=== PATIENT | female | born 1935 | race American Indian/Alaskan Native ===

== ENCOUNTER 2018-10-09 13:45 | Emergency (ER) | payer MEDICARE ==
[2018-10-09] MEDS ORDERED: ZOFRAN IV ONE (15:08)
[2018-10-09] MEDS ORDERED: NACL 0.9% 1000 ML 1,000 ML IV ONE (15:08)
[2018-10-09] MEDS ORDERED: SUBLIMAZE IV ONE (15:08)
--- NOTE | 2018-10-09 15:10 | Emergency Department Report ---
ED N/V/D HPI - General Chief complaint: Nausea/Vomiting/Diarrhea Stated complaint: VOMITING/DEHYDRATED Time Seen by Provider: 10/09/18 14:52 Source: family Mode of arrival: Wheelchair Limitations: Other - History of Present Illness MD complaint: nausea, vomiting -: This morning Description of Vomiting: watery Associated Abdominal Pain: Yes Location: epigastric Radiation: none Severity: mild Pain Scale: 2 Quality: cramping, aching Consistency: constant Improves with: none Worsens with: none Associated Symptoms: nausea/vomiting - Related Data Previous Rx's Medication Instructions Recorded Last Taken Type Ondansetron [Zofran Odt] 4 mg PO Q8HR PRN #20 tab.rapdis 10/09/18 Unknown Rx Allergies Allergy/AdvReac Type Severity Reaction Status Date / Time No Known Allergies Allergy Verified 10/09/18 14:01 ED Review of Systems ROS: Stated complaint: VOMITING/DEHYDRATED Other details as noted in HPI Comment: All other systems reviewed and negative Constitutional: denies: chills, fever Eyes: denies: eye pain, eye discharge, vision change ENT: denies: ear pain, throat pain Respiratory: denies: cough, shortness of breath, wheezing Cardiovascular: denies: chest pain, palpitations Endocrine: no symptoms reported Gastrointestinal: abdominal pain, nausea, vomiting. denies: diarrhea Genitourinary: denies: urgency, dysuria, discharge Musculoskeletal: denies: back pain, joint swelling, arthralgia Skin: denies: rash, lesions Neurological: denies: headache, weakness, paresthesias Psychiatric: denies: anxiety, depression Hematological/Lymphatic: denies: easy bleeding, easy bruising ED Past Medical Hx - Past Medical History Hx Hypertension: Yes Hx Dementia: Yes Additional medical history: HIGH CHOLESTROL/ THYROID PROBELMS - Social History Smoking Status: Never Smoker Substance Use Type: None - Medications Home Medications: Home Medications Medication Instructions Recorded Confirmed Last Taken Type Ondansetron [Zofran Odt] 4 mg PO Q8HR PRN #20 tab.rapdis 10/09/18 Unknown Rx ED Physical Exam - General Limitations: Other General appearance: alert, in no apparent distress - Head Head exam: Present: atraumatic, normocephalic, normal inspection - Eye Eye exam: Present: normal appearance, PERRL, EOMI Pupils: Present: normal accommodation - ENT ENT exam: Present: normal exam, normal orophraynx, mucous membranes moist - Neck Neck exam: Present: normal inspection, tenderness, full ROM - Respiratory Respiratory exam: Present: normal lung sounds bilaterally. Absent: respiratory distress, wheezes, rales, rhonchi, stridor - Cardiovascular Cardiovascular Exam: Present: regular rate, normal rhythm, normal heart sounds. Absent: systolic murmur, diastolic murmur, rubs, gallop - GI/Abdominal GI/Abdominal exam: Present: soft, tenderness (Mild epigastric tenderness to palaption.), normal bowel sounds. Absent: distended, guarding, rebound, rigid - Rectal Rectal exam: Present: deferred - Extremities Exam Extremities exam: Present: normal inspection, full ROM, normal capillary refill - Back Exam Back exam: Present: normal inspection, full ROM. Absent: tenderness, CVA tenderness (L) - Neurological Exam Neurological exam: Present: alert, oriented X3, CN II-XII intact - Psychiatric Psychiatric exam: Present: normal affect, normal mood - Skin Skin exam: Present: warm, dry, intact, normal color. Absent: rash ED Course Vital Signs 10/09/18 10/09/18 10/09/18 14:02 14:58 15:35 Temperature 98.3 F Pulse Rate 80 Respiratory 18 18 18 Rate Blood Pressure 148/93 O2 Sat by Pulse 95 97 Oximetry - Reevaluation(s) Reevaluation #1: 10/09/18 18:43 Patient has not vomited since she has been in the ED. She feels much better now and ready to go home. ED Medical Decision Making - Lab Data Result diagrams: 10/09/18 15:24 10/09/18 15:24 Lab Results 10/09/18 10/09/18 Range/Units 15:24 15:24 WBC 5.0 (4.5-11.0) K/mm3 RBC 3.10 L (3.65-5.03) M/mm3 Hgb 10.1 (10.1-14.3) gm/dl Hct 30.3 (30.3-42.9) % MCV 98 H (79-97) fl MCH 33 H (28-32) pg MCHC 33 (30-34) % RDW 14.2 (13.2-15.2) % Plt Count 247 (140-440) K/mm3 Lymph % (Auto) 14.8 (13.4-35.0) % [place] % (Auto) 6.2 (0.0-7.3) % Eos % (Auto) 0.1 (0.0-4.3) % Baso % (Auto) 0.4 (0.0-1.8) % Lymph # 0.7 L (1.2-5.4) K/mm3 [place] # 0.3 (0.0-0.8) K/mm3 Eos # 0.0 (0.0-0.4) K/mm3 Baso # 0.0 (0.0-0.1) K/mm3 Seg Neutrophils % 78.5 H (40.0-70.0) % Seg Neutrophils # 3.9 (1.8-7.7) K/mm3 Sodium 143 (137-145) mmol/L Potassium 3.6 (3.6-5.0) mmol/L Chloride 103.7 (98-107) mmol/L Carbon Dioxide 27 (22-30) mmol/L Anion Gap 16 mmol/L BUN 14 (7-17) mg/dL Creatinine 1.1 (0.7-1.2) mg/dL Estimated GFR 58 ml/min BUN/Creatinine Ratio 13 % Glucose 104 H (65-100) mg/dL Calcium 10.1 (8.4-10.2) mg/dL Total Bilirubin 0.30 (0.1-1.2) mg/dL AST 17 (5-40) units/L ALT 16 (7-56) units/L Alkaline Phosphatase 82 (35-129) units/L Troponin T < 0.010 (0.00-0.029) ng/mL Total Protein 7.7 (6.3-8.2) g/dL Albumin 4.0 (3.9-5) g/dL Albumin/Globulin Ratio 1.1 % Lipase 28 (13-60) units/L - Radiology Data Radiology results: report reviewed, image reviewed CT abdomen and pelvis with IV contrast showed no acute intra abdominal findings. - Medical Decision Making Nausea and Vomiting. Critical care attestation.: If time is entered above; I have spent that time in minutes in the direct care of this critically ill patient, excluding procedure time. ED Disposition Clinical Impression: Dehydration Abdominal pain Qualifiers: Abdominal location: epigastric Qualified Code(s): R10.13 - Epigastric pain Nausea & vomiting Qualifiers: Vomiting type: unspecified Vomiting Intractability: non-intractable Qualified Code(s): R11.2 - Nausea with vomiting, unspecified Disposition: DC-01 TO HOME OR SELFCARE Is pt being admited?: No Does the pt Need Aspirin: No Condition: Stable Instructions: Abdominal Pain (ED), Acute Nausea and Vomiting (ED) Additional Instructions: Please follow up with your regular doctor or Dr Torres on Thursday. Return to the ED if your condition worsens. Prescriptions: Ondansetron [Zofran Odt] 4 mg PO Q8HR PRN #20 tab.rapdis PRN Reason: Nausea And Vomiting Referrals: KEYLA IZQUIERDO MD [Primary Care Provider] - 3-5 Days Time of Disposition: 18:46
[2018-10-09 15:56] LABS: Basophils % (Auto) 0.4 % (0.0-1.8); Eosinophils % (Auto) 0.1 % (0.0-4.3); Hematocrit 30.3 % (30.3-42.9); Hemoglobin 10.1 gm/dl (10.1-14.3); Lymphocytes # (Auto) 0.7 K/mm3 (1.2-5.4); Lymphocytes % (Auto) 14.8 % (13.4-35.0); Mean Corpuscular HGB Conc 33 % (30-34); Mean Corpuscular Volume 98 fl (79-97); Monocytes # (Auto) 0.3 K/mm3 (0.0-0.8); Monocytes % (Auto) 6.2 % (0.0-7.3); Platelet Count 247 K/mm3 (140-440); Red Cell Distribution Width 14.2 % (13.2-15.2)
[2018-10-09 16:02] LABS: Alanine Aminotransferase 16 units/L (7-56); BUN/Creatinine Ratio 13; Blood Urea Nitrogen 14 mg/dL (7-17); Calcium 10.1 mg/dL (8.4-10.2); Hemolysis Index 1
[2018-10-09 18:07] LABS: Bilirubin,Urine NEG (Negative); Blood,Urine NEG (Negative); Color,Urine Yellow (Yellow); Protein,Urine <15 mg/dL mg/dL (Negative); Urobilinogen,Urine < 2.0 mg/dL (<2.0)
--- NOTE | 2018-10-09 18:10 | Cat Scan Report ---
FINAL REPORT PROCEDURE: CT abdomen and pelvis with contrast. TECHNIQUE: Computerized axial tomography of the abdomen and pelvis was performed after the IV inject ion of iodinated nonionic contrast. HISTORY: Abdominal pain. COMPARISON: No prior studies are available for comparison. FINDINGS: The lung bases are grossly clear. There are no pleural effusions. The heart size is mildly enlarged. There are probably a few tiny hepatic cysts. The gallbladder is present. There is no biliary dilatati on. The pancreas and spleen appear normal. The adrenal glands are not enlarged. There are bilateral r enal cysts. The abdominal aorta is tortuous with a normal caliber. There is atherosclerotic calcifica tion in the abdominal aorta and iliac arteries. There is no retroperitoneal adenopathy. The unopacifi ed gastrointestinal tract is unremarkable. The appendix is not definitely visualized. The bladder is unremarkable. The uterus is enlarged and contains some calcifications. This suggests fibroid disease. The regional skeleton appears intact. There is a moderate lumbar scoliosis. There is a small umbilic al hernia containing fat. IMPRESSION: Mild cardiomegaly. Tiny a patent cysts. Bilateral renal cysts. Atherosclerosis. Probable uterine leio myomas. No evidence of acute disease in the abdomen or pelvis.
[2018-10-09 19:48] VITALS: BP 152/97
== END 2018-10-09 20:23 | disposition home or self-care (01) ==
LOC: ED 13:45
DX: E86.0 Dehydration (principal)
CPT/HCPCS: 36415; 74177; 80053; 81001; 83690; 84484; 85025; 96361; 96374; 96375; 99285; J2405; J3010; J7030; Q9967

== ENCOUNTER 2018-11-29 09:33 | Emergency (ER) | payer MEDICARE ==
[2018-11-29] MEDS ORDERED: NACL 0.9% 1000 ML 1,000 ML IV ONE (10:04)
[2018-11-29 11:01] LABS: Albumin 3.6 g/dL (3.9-5); Calcium 11.1 mg/dL (8.4-10.2)
[2018-11-29 11:03] LABS: Basophils % (Auto) 0.4 % (0.0-1.8); Eosinophils # (Auto) 0.1 K/mm3 (0.0-0.4); Eosinophils % (Auto) 1.3 % (0.0-4.3); Hematocrit 31.3 % (30.3-42.9); Hemoglobin 10.3 gm/dl (10.1-14.3); Lymphocytes # (Auto) 1.1 K/mm3 (1.2-5.4); Lymphocytes % (Auto) 18.9 % (13.4-35.0); Mean Corpuscular HGB Conc 33 % (30-34); Mean Corpuscular Volume 97 fl (79-97); Monocytes # (Auto) 0.6 K/mm3 (0.0-0.8); Monocytes % (Auto) 11.1 % (0.0-7.3); Platelet Count 295 K/mm3 (140-440); Red Blood Count 3.24 M/mm3 (3.65-5.03)
[2018-11-29 13:28] LABS: INR 1.02 (0.87-1.13)
[2018-11-29 13:29] LABS: Partial Thromboplastin Time 26.8 Sec. (24.2-36.6)
--- NOTE | 2018-11-29 14:32 | Cat Scan Report ---
CT ABDOMEN PELVIS WITHOUT CONTRAST: HISTORY: Abdominal pain, constipation. COMPARISON: 10/09/18. TECHNIQUE: Helical CT in 1.25mm intervals without IV contrast. Sagittal and coronal reconstructions. FINDINGS: Lung bases: Normal. Liver: Normal. Biliary system: Normal. Pancreas: Normal. Spleen: Normal. Kidneys/ureters/bladder: 2 or 3 calyceal stones are identified in both kidneys measuring up to 5 mm. No hydronephrosis or ureteral stones. A 3 cm cyst is identified at the superior pole of the left kidney. A 2 cm cyst is noted in the mid right kidney. The bladder is unremarkable. Adrenal glands: Normal. Aorta: The aorta is ectatic with diffuse calcifications. No aneurysm. Intestines: There is moderate to large stool throughout the length of the colon and rectum consistent with moderate constipation. There is no evidence for obstruction or focal inflammation. A few scattered diverticula are noted in the cecum and descending colon. Appendix: Normal. Pelvic viscera: The uterus is mildly enlarged and contains multiple small to medium fibroids ranging from 1-4 cm in diameter. No adnexal cyst or mass. Ascites: None. Adenopathy: None. Musculoskeletal: Moderate to severe thoracolumbar spondylosis. No fracture or suspicious bony lesion. IMPRESSION: No acute inflammatory process is identified in the abdomen or pelvis. Moderate constipation. Bilateral renal calyceal stones. No hydronephrosis or ureteral stones. Simple renal cysts. Ectatic aorta with calcifications. Uterine fibroid disease.
--- NOTE | 2018-11-29 16:11 | Emergency Department Report ---
ED General Adult HPI - General Chief complaint: Abdominal Pain Stated complaint: DEMENTIA/CONSTIPATED/DEHYDRATED Time Seen by Provider: 11/29/18 12:39 Source: family Mode of arrival: Wheelchair Limitations: Altered Mental Status - History of Present Illness Initial comments: The patient presents to the emergency department with a chief complaint of abdo elio pain and constipation times one day. The patient does have dementia so at times is difficulty due to history but she does eventually answer questions. Patient denies chest pain, shortness breath, or headache. -: Gradual Location: abdomen Severity scale (0 -10): 5 Quality: aching Consistency: constant Improves with: none Worsens with: none Associated Symptoms: denies other symptoms Treatments Prior to Arrival: none - Related Data Previous Rx's Medication Instructions Recorded Last Taken Type Ondansetron [Zofran Odt] 4 mg PO Q8HR PRN #20 tab.rapdis 10/09/18 Unknown Rx Magnesium Citrate [Citrate of 300 ml PO ONCE #1 solution 11/29/18 Unknown Rx Magnesia] Allergies Allergy/AdvReac Type Severity Reaction Status Date / Time No Known Allergies Allergy Verified 10/09/18 14:01 ED Review of Systems ROS: Stated complaint: DEMENTIA/CONSTIPATED/DEHYDRATED Other details as noted in HPI Comment: All other systems reviewed and negative Constitutional: denies: chills, fever Eyes: denies: eye pain, eye discharge, vision change ENT: denies: ear pain, throat pain Respiratory: denies: cough, shortness of breath, wheezing Cardiovascular: denies: chest pain, palpitations Endocrine: no symptoms reported Gastrointestinal: abdominal pain. denies: nausea, diarrhea Genitourinary: denies: urgency, dysuria, discharge Musculoskeletal: denies: back pain, joint swelling, arthralgia Skin: denies: rash, lesions Neurological: denies: headache, weakness, paresthesias Psychiatric: denies: anxiety, depression Hematological/Lymphatic: denies: easy bleeding, easy bruising ED Past Medical Hx - Past Medical History Hx Hypertension: Yes Hx Dementia: Yes Additional medical history: HIGH CHOLESTROL/ THYROID PROBELMS - Social History Smoking Status: Never Smoker Substance Use Type: None - Medications Home Medications: Home Medications Medication Instructions Recorded Confirmed Last Taken Type Ondansetron [Zofran Odt] 4 mg PO Q8HR PRN #20 tab.rapdis 10/09/18 Unknown Rx Magnesium Citrate [Citrate of 300 ml PO ONCE #1 solution 11/29/18 Unknown Rx Magnesia] ED Physical Exam - General Limitations: Altered Mental Status General appearance: alert, in no apparent distress - Head Head exam: Present: atraumatic, normocephalic - Eye Eye exam: Present: normal appearance, PERRL, EOMI - ENT ENT exam: Present: mucous membranes moist - Neck Neck exam: Present: normal inspection - Respiratory Respiratory exam: Present: normal lung sounds bilaterally. Absent: respiratory distress, wheezes, rales, rhonchi - Cardiovascular Cardiovascular Exam: Present: regular rate, normal rhythm. Absent: systolic murmur, diastolic murmur, rubs, gallop - GI/Abdominal GI/Abdominal exam: Present: soft, normal bowel sounds. Absent: distended, tenderness - Extremities Exam Extremities exam: Present: normal inspection - Back Exam Back exam: Present: normal inspection - Neurological Exam Neurological exam: Present: alert, oriented X3, CN II-XII intact. Absent: motor sensory deficit - Psychiatric Psychiatric exam: Present: normal affect, normal mood - Skin Skin exam: Present: warm, dry, intact, normal color. Absent: rash ED Course Vital Signs 11/29/18 10:07 Temperature 97.6 F Pulse Rate 99 H Respiratory 16 Rate Blood Pressure 97/67 [Left] O2 Sat by Pulse 97 Oximetry ED Medical Decision Making - Lab Data Result diagrams: 11/29/18 10:32 11/29/18 10:27 Lab Results 11/29/18 11/29/18 11/29/18 Range/Units 10:27 10:32 13:02 WBC 5.7 (4.5-11.0) K/mm3 RBC 3.24 L (3.65-5.03) M/mm3 Hgb 10.3 (10.1-14.3) gm/dl Hct 31.3 (30.3-42.9) % MCV 97 (79-97) fl MCH 32 (28-32) pg MCHC 33 (30-34) % RDW 15.0 (13.2-15.2) % Plt Count 295 (140-440) K/mm3 Lymph % (Auto) 18.9 (13.4-35.0) % [place] % (Auto) 11.1 H (0.0-7.3) % Eos % (Auto) 1.3 (0.0-4.3) % Baso % (Auto) 0.4 (0.0-1.8) % Lymph # 1.1 L (1.2-5.4) K/mm3 [place] # 0.6 (0.0-0.8) K/mm3 Eos # 0.1 (0.0-0.4) K/mm3 Baso # 0.0 (0.0-0.1) K/mm3 Seg Neutrophils % 68.3 (40.0-70.0) % Seg Neutrophils # 3.9 (1.8-7.7) K/mm3 PT 14.0 (12.2-14.9) Sec. INR 1.02 (0.87-1.13) APTT 26.8 (24.2-36.6) Sec. Sodium 145 (137-145) mmol/L Potassium 3.8 (3.6-5.0) mmol/L Chloride 103.9 (98-107) mmol/L Carbon Dioxide 28 (22-30) mmol/L Anion Gap 17 mmol/L BUN 23 H (7-17) mg/dL Creatinine 1.2 (0.7-1.2) mg/dL Estimated GFR 52 ml/min BUN/Creatinine Ratio 19 % Glucose 114 H (65-100) mg/dL Calcium 11.1 H (8.4-10.2) mg/dL Total Bilirubin 0.40 (0.1-1.2) mg/dL AST 20 (5-40) units/L ALT 19 (7-56) units/L Alkaline Phosphatase 72 (35-129) units/L Total Protein 7.7 (6.3-8.2) g/dL Albumin 3.6 L (3.9-5) g/dL Albumin/Globulin Ratio 0.9 % - Radiology Data Radiology results: report reviewed Critical care attestation.: If time is entered above; I have spent that time in minutes in the direct care of this critically ill patient, excluding procedure time. ED Disposition Clinical Impression: Constipation, Abdominal pain Disposition: DC-01 TO HOME OR SELFCARE Is pt being admited?: No Does the pt Need Aspirin: No Condition: Stable Instructions: Abdominal Pain (ED), Constipation (ED) Prescriptions: Magnesium Citrate [Citrate of Magnesia] 300 ml PO ONCE #1 solution Referrals: DOMENIC LEIVA MD [Primary Care Provider] - 3-5 Days Time of Disposition: 16:13
[2018-11-29 21:11] VITALS: BP 97/67
== END 2018-11-29 21:10 | disposition home or self-care (01) ==
LOC: ED 09:33
DX: K59.00 Constipation, unspecified (principal); E86.0 Dehydration; I10 Essential (primary) hypertension; E78.00 Pure hypercholesterolemia, unspecified
CPT/HCPCS: 36415; 74176; 80053; 85025; 85610; 85730; 93005; 93010; 96360; 96361; 99284; J7030

== ENCOUNTER 2018-12-01 14:32 | Emergency (ER) | payer MEDICARE ==
--- NOTE | 2018-12-01 15:12 | Emergency Department Report ---
ED General Adult HPI - General Chief complaint: Altered Mental Status Stated complaint: BEHAVIOR DISTURBANCE Time Seen by Provider: 12/01/18 15:02 Source: patient, EMS (ems notes not available at time of chart dictation), RN notes reviewed, old records reviewed Mode of arrival: Stretcher Limitations: Other (patient demented. Patient is a poor historian.) - History of Present Illness Initial comments: This is a pleasant 83-year-old female. The patient is not known to this provider previously. She has a history of presumed dementia and constipation. The patient was seen in this emergency department 2 days ago for dehydration and constipation. She had an extensive workup, including laboratory studies, and a noncontrast CT scan of the abdomen and pelvis which did not them straighten any acute disease or pathology, other than constipation. The patient is reportedly brought to the emergency room by her daughter for constipation, and poor oral intake. The patient's daughter is not currently present physically, the patient endorses no complaints at this provider. The patient is moving 4 extremities and denies physical pain. Patient not able to describe exacerbating or relieving factors, aggravation of factors, qualitative nature of symptoms, or radiation of symptoms. -: unknown Quality: other Consistency: other Improves with: other - Related Data Previous Rx's Medication Instructions Recorded Last Taken Type Ondansetron [Zofran Odt] 4 mg PO Q8HR PRN #20 tab.rapdis 10/09/18 Unknown Rx Magnesium Citrate [Citrate of 300 ml PO ONCE #1 solution 11/29/18 Unknown Rx Magnesia] Allergies Allergy/AdvReac Type Severity Reaction Status Date / Time No Known Allergies Allergy Verified 10/09/18 14:01 ED Review of Systems ROS: Stated complaint: BEHAVIOR DISTURBANCE Other details as noted in HPI Comment: poor historian Constitutional: denies: fever Cardiovascular: denies: chest pain Gastrointestinal: constipation. denies: abdominal pain Genitourinary: denies: dysuria Neurological: confusion ED Past Medical Hx - Past Medical History Hx Hypertension: Yes Hx Dementia: Yes Additional medical history: HIGH CHOLESTROL/ THYROID PROBELMS - Social History Smoking Status: Never Smoker Substance Use Type: None - Medications Home Medications: Home Medications Medication Instructions Recorded Confirmed Last Taken Type Ondansetron [Zofran Odt] 4 mg PO Q8HR PRN #20 tab.rapdis 10/09/18 Unknown Rx Magnesium Citrate [Citrate of 300 ml PO ONCE #1 solution 11/29/18 Unknown Rx Magnesia] ED Physical Exam - General Limitations: Other (patient demented. Patient is a poor historian) General appearance: in no apparent distress - Head Head exam: Present: atraumatic, normocephalic - Eye Eye exam: Present: normal appearance, EOMI - ENT ENT exam: Present: mucous membranes dry, normal external ear exam - Neck Neck exam: Present: normal inspection, full ROM. Absent: tenderness, meningismus - Respiratory Respiratory exam: Present: normal lung sounds bilaterally. Absent: respiratory distress - Cardiovascular Cardiovascular Exam: Present: regular rate, normal rhythm, normal heart sounds. Absent: bradycardia, tachycardia, irregular rhythm, systolic murmur, diastolic murmur, rubs, gallop - GI/Abdominal GI/Abdominal exam: Present: soft, tenderness (suprapubic tenderness. Otherwise, no rebound, guarding or peritoneal signs). Absent: distended, guarding, rebound, rigid, pulsatile mass - Extremities Exam Extremities exam: Present: normal inspection, full ROM, other (2+ pulses noted in the bilateral upper, lower extremities. Compartments soft. No long bony tenderness. The pelvis is stable.). Absent: pedal edema, joint swelling, calf tenderness - Back Exam Back exam: Present: normal inspection, full ROM. Absent: tenderness, CVA tenderness (R), paraspinal tenderness, vertebral tenderness - Neurological Exam Neurological exam: Present: alert (patient is alert to name, and year. Patient follows commands.), other (there is no facial droop. The tongue is midline. Moving 4 extremities spontaneously and to command. Sensation is intact to light touch in 4 extremities.) - Skin Skin exam: Present: warm, dry, intact, normal color. Absent: rash ED Course Vital Signs 12/01/18 12/01/18 12/01/18 14:50 16:30 18:10 Temperature 99.2 F Pulse Rate 54 L 75 Respiratory 12 13 12 Rate Blood Pressure 121/80 132/72 [Right] O2 Sat by Pulse 94 99 99 Oximetry - Reevaluation(s) Reevaluation #1: 12/01/18 17:13 Differential diagnosis, including but not limited to: Dehydration, urinary tract infection, constipation, natural history of dementia Assessment and plan: 83-year-old female who received a thorough workup 2 days ago, presenting with presumably natural expected history of dementia. Patient is afebrile with reassuring vital signs and is in no acute distress. H as very mild renal insufficiency. Hemodynamically stable at this time. Noncontrast CT scan of the brain is negative for acute disease. A screening urinalysis is pending at this time. Case management consult was requested to determine if patient is eligible for any services or home health. Reevaluation #2: 12/01/18 19:03 Patient observed in the emergency room without clinical decompensation. Urinalysis is not consistent with urinary tract infection. CT scan of the abdomen and pelvis basically unchanged from prior. Patient found to have numerous incidental nonemergent findings, which will require outpatient follow- up. Patient observed in the ER without decompensation. She is found to have an incidental 4.7 cm AAA, without evidence of rupture, or leak. In addition, she does not have a pulsatile abdominal mass, and she does not have abdominal tenderness. This can be followed up as an outpatient. Her mild renal insufficiency may be followed up by outpatient primary care doctor or theatrical variety agent. Furthermore, nursing team indicates that they witnessed the patient eating and drinking without difficulty. 12/01/18 19:06 ED Medical Decision Making - Lab Data Result diagrams: 12/01/18 15:36 Vital Signs 12/01/18 14:50 Temperature 99.2 F Pulse Rate 54 L Respiratory 12 Rate Blood Pressure 121/80 [Right] O2 Sat by Pulse 94 Oximetry Lab Results 12/01/18 12/01/18 12/01/18 Range/Units 15:36 15:36 15:36 Sodium 143 (137-145) mmol/L Potassium 4.5 (3.6-5.0) mmol/L Chloride 103.5 (98-107) mmol/L Carbon Dioxide 28 (22-30) mmol/L Anion Gap 16 mmol/L BUN 20 H (7-17) mg/dL Creatinine 1.4 H (0.7-1.2) mg/dL Estimated GFR 44 ml/min BUN/Creatinine Ratio 14 % Glucose 131 H (65-100) mg/dL Calcium 10.6 H (8.4-10.2) mg/dL Magnesium (1.7-2.3) mg/dL TSH 2.540 (0.270-4.200) mlU/mL Salicylates < 0.3 L (2.8-20.0) mg/dL Acetaminophen (10.0-30.0) ug/mL 12/01/18 12/01/18 Range/Units 15:36 15:36 Sodium (137-145) mmol/L Potassium (3.6-5.0) mmol/L Chloride (98-107) mmol/L Carbon Dioxide (22-30) mmol/L Anion Gap mmol/L BUN (7-17) mg/dL Creatinine (0.7-1.2) mg/dL Estimated GFR ml/min BUN/Creatinine Ratio % Glucose (65-100) mg/dL Calcium (8.4-10.2) mg/dL Magnesium 2.60 H (1.7-2.3) mg/dL TSH (0.270-4.200) mlU/mL Salicylates (2.8-20.0) mg/dL Acetaminophen < 5.0 L (10.0-30.0) ug/mL - EKG Data -: EKG Interpreted by Pa EKG shows normal: sinus rhythm - EKG Data When compared to previous EKG there are: no significant change Interpretation: no acute changes 12/01/18 17:15 Normal sinus, 70 bpm, QTC within normal limits, left axis deviation, low voltage, atrial enlargement, poor R wave progression, abnormal EKG, not consistent with ST elevation myocardial infarction, appears unchanged from prior EKG from 11/29/2018. - Radiology Data Radiology results: pending, report reviewed, image reviewed Noncontrast CT scan of the brain is negative for acute disease. Print Report Referring Physician: JENNIFER DUNNE Patient Name: RUSSEL BABCOCK Date of : 1935 Sex: Female Report Date: 2018-12-01 Report Status: Finalized Findings [facility] [address] [place] [address] Cat Scan Report Signed Patient: RUSSEL BABCOCK MR#: [id number] 39 : 1935 Acct:[id number] Age/Sex: 83 / F ADM Date: 12/01/18 Loc: ED Attending Dr: Ordering Physician: JENNIFER DUNNE MD Date of Service: 12/01/18 Procedure(s): CT abdomen pelvis wo con Accession Number(s): [id number] cc: JENNIFER DUNNE MD PROCEDURE: CT ABDOMEN PELVIS WO CON TECHNIQUE: CT abdomen and pelvis without contrast HISTORY: abd tenderness, suprapubic COMPARISONS: Comparison is November 29, 2018 FINDINGS: No acute abnormality identified in the lung bases. Noted is aneurysmal dilatation of the visualized portion of the ascending aorta 4.[address] there is no focal abnormality identified within the liver parenchyma. Spleen is normal in size. There is low-density focus upper pole of the left kidney 3.4 cm. Incompletely characterized most likely a cyst There are several bilateral cysts. 2-3 mm nonobstructing renal calculi. No evidence for hydronephrosis. No significant small bowel distention. There is marked distention of the urinary bladder No free fluid or free air identified. Calcifications noted in the uterus. Uterine calcification noted. There is large amount of stool throughout the colon similar to prior exam. 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 This document is electronically signed by Shawn Roca MD., December 01 2018 06:04:01 PM ET Transcribed By: [facility] Dictated By: KIMBERLY ROCA MD Electronically Authenticated By: KIMBERLY ROCA MD Signed Date/Time: 12/01/181805 DD/ 38 TD/TT: 12/01/18 153 Critical care attestation.: If time is entered above; I have spent that time in minutes in the direct care of this critically ill patient, excluding procedure time. ED Disposition Clinical Impression: Renal insufficiency Dementia Qualifiers: Alzheimer's disease onset: unspecified onset Dementia behavioral disturbance: with behavioral disturbance AAA (abdominal aortic aneurysm) Qualifiers: Presence of rupture: without rupture Qualified Code(s): I71.4 - Abdominal aortic aneurysm, without rupture Disposition: DC-01 TO HOME OR SELFCARE Is pt being admited?: No Does the pt Need Aspirin: No Condition: Good Additional Instructions: A assistant case manager consultation has been requested to assist in determining what services patient may be eligible for at home. Patient most likely has underlying dementia, which is typically an irreversible cognitive condition. The patient was also found to have incidental mild dehydration, renal insufficiency, and also found to have a small AAA; abdominal aortic aneurysm. The patient should follow-up with her primary care doctor or a neurology specialist within the next 10-14 days for her presumed dementia. The patient should follow-up with a primary care doctor or kidney specialist for her renal insufficiency within the next 10-14 days. The patient should avoid Motrin, ibuprofen, Naprosyn, Aleve, and avoid EMELY inhibitor medications for the time being The patient should follow-up with a vascular surgeon within the next 2 weeks for her incidental AAA. Please return to the emergency room right away with fevers, chills, lethargy, irritability, projectile vomiting, change in mental status, confusion, new, worsening or different symptoms. Referrals: [facility] [Other] - 3-5 Days [facility] [Provider Group] - 3-5 Days JANICE ANTOINE MD [Staff Physician] - 3-5 Days FELIX BRANDON MD [Referring] - 3-5 Days NAKUL SMITH MD [Staff Physician] - 3-5 Days
[2018-12-01 16:20] LABS: Calcium 10.6 mg/dL (8.4-10.2)
[2018-12-01] MEDS ORDERED: NACL 0.9% 500 ML 500 ML IV ONE (16:24)
--- NOTE | 2018-12-01 16:37 | Cat Scan Report ---
PROCEDURE: CT HEAD/BRAIN WO CON TECHNIQUE: CT head without contrast HISTORY: decreased cognition COMPARISONS: FINDINGS: Patchy and confluent areas of hypodensity are present within the supratentorial white matter. No acut e intra or extra-axial hemorrhage identified. No evidence for midline shift or mass effect. Ventricle s and sulci are within normal limits. Bony calvarium appears intact. There is some mucosal thickening noted within the right maxillary sinus IMPRESSION: Chronic small vessel ischemic changes Evidence for chronic sinusitis . This document is electronically signed by Shawn Gomez MD., December 01 2018 04:35:21 PM ET
[2018-12-01 18:03] LABS: Bilirubin,Urine NEG (Negative); Blood,Urine NEG (Negative); Color,Urine Yellow (Yellow); Protein,Urine <15 mg/dL mg/dL (Negative); Urobilinogen,Urine < 2.0 mg/dL (<2.0)
--- NOTE | 2018-12-01 18:06 | Cat Scan Report ---
PROCEDURE: CT ABDOMEN PELVIS WO CON TECHNIQUE: CT abdomen and pelvis without contrast HISTORY: abd tenderness, suprapubic COMPARISONS: Comparison is November 29, 2018 FINDINGS: No acute abnormality identified in the lung bases. Noted is aneurysmal dilatation of the visualized p ortion of the ascending aorta 4.[address] there is no focal abnormality identified within the liver parenchyma. Spleen is normal in size. There is low-density focus upper pole of the left kidney 3.4 cm. Incompletely characterized most like ly a cyst There are several bilateral cysts. 2-3 mm nonobstructing renal calculi. No evidence for hydronephrosi s. No significant small bowel distention. There is marked distention of the urinary bladder No free fluid or free air identified. Calcifications noted in the uterus. Uterine calcification noted. There is large amount of stool throughout the colon similar to prior exam. 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 This document is electronically signed by Shawn Gomez MD., December 01 2018 06:04:01 PM ET
[2018-12-01 22:26] VITALS: BP 142/78
== END 2018-12-01 22:27 | disposition home or self-care (01) ==
LOC: ED 14:32
DX: N28.9 Disorder of kidney and ureter, unspecified (principal); G30.9 Alzheimer's disease, unspecified; F02.80 Dementia in other diseases classified elsewhere, unspecified severity, without behavioral disturbance, psychotic disturbance, mood disturbance, and anxiety; I71.4 Abdominal aortic aneurysm, without rupture; I10 Essential (primary) hypertension; E78.00 Pure hypercholesterolemia, unspecified
CPT/HCPCS: 36415; 70450; 74176; 80048; 81001; 83735; 84443; 93005; 93010; 96360; 96361; 99284; G0480; J7040; 80320